=== PATIENT | female | born 1990 | race Caucasian/White ===

== ENCOUNTER 2019-08-31 07:14 | Day surgery (SDC) | payer BC ==
[2019-08-28 17:06] LABS: BASOPHILS # (AUTO) 0.1 X10'3 (0-0.2); BASOPHILS % (AUTO) 0.8 % (0-1); EOSINOPHILS # (AUTO) 0.2 X10'3 (0-0.9); EOSINOPHILS % (AUTO) 2.4 % (0-6); LYMPHOCYTES # (AUTO) 1.7 X10'3 (1.1-4.8); MEAN CORPUSCULAR HEMOGLOBIN 26.1 PG (27.0-31.0); MEAN CORPUSCULAR HGB CONC 32.6 g/dL (33.0-36.5); MEAN CORPUSCULAR VOLUME 79.9 FL (78-98); MEAN PLATELET VOLUME 9.1 FL (7.4-10.4); MONOCYTES # (AUTO) 0.6 X10'3 (0-0.9); MONOCYTES % (AUTO) 8.2 % (2-12); NEUTROPHILS # (AUTO) 4.7 X10'3 (1.8-7.7); NEUTROPHILS % (AUTO) 65.6 % (42-75); PRE OP HEMATOCRIT 35.1 % (35.0-45.0); PRE OP HEMOGLOBIN 11.4 g/dL (12.0-16.0); PRE OP PLATELET COUNT 257 X10'3 (140-440); RED BLOOD COUNT 4.39 X10'6 (4.20-5.60); RED CELL DISTRIBUTION WIDTH 19.5 % (11.5-14.5)
[2019-08-28 17:08] LABS: CLARITY,URINE SLIGHTLY CLOUDY (Clear); COLOR,URINE STRAW (Yellow); GLUCOSE, URINE NEGATIVE (Neg); KETONES,URINE NEGATIVE (Neg); LEUKOCYTE ESTERASE ,URINE SMALL (Neg); NITRITES, URINE NEGATIVE (Neg); OCCULT BLOOD,URINE NEGATIVE (Neg); PROTEIN,URINE NEGATIVE (Neg); UROBILINOGEN,URINE 0.2 E.U/dL (0.2-1.0)
[2019-08-28 17:11] LABS: UA COLLECTION TYPE CLN CATCH MIDSTREAM
[2019-08-28 17:19] LABS: ALBUMIN/GLOBULIN RATIO 1.1 (1.1-1.5); ALKALINE PHOSPHATASE 127 IU/L (46-116); BLOOD UREA NITROGEN 10 MG/DL (7-18); BUN/CREATININE RATIO 11.5 (6.6-38.0); CALCIUM 8.6 MG/DL (8.5-10.1); CHLORIDE 105 MMOL/L (99-107); CREATININE 0.87 MG/DL (0.40-0.90); PRE OP ALT 22 U/L (30-65); PRE OP ANION GAP 5 (8-16); PRE OP AST 12 U/L (10-37); PRE OP BILIRUB, TOTAL 0.2 MG/DL (0.0-1.0); PRE OP GLUCOSE 83 MG/DL (70-104); PRE OP POTASSIUM 3.7 MMOL/L (3.4-5.1); PRE OP SODIUM 140 MMOL/L (135-145); TOTAL PROTEIN 7.8 G/DL (6.4-8.2); eGFR 77 ML/MIN
[2019-08-28 17:29] LABS: HCG SERUM QL NEGATIVE
[2019-08-28 17:30] LABS: SQUAMOUS EPITHELIAL CELL,UR MANY /LPF (FEW)
[2019-08-28 17:32] LABS: MUCUS STRANDS FEW /LPF (Neg)
[2019-08-28 17:33] LABS: RBC,URINE 0-2 /HPF (0-2); WBC,URINE 0-4 /HPF (0-4)
[2019-08-28 17:34] LABS: BACTERIA,URINE 1+ /HPF (Neg)
[~2019-08-31] VITALS: Ht 165.1 cm; Wt 72.1 kg
[2019-08-31] VITALS (7 sets, daily range): BP systolic 122–145; BP diastolic 73–93
[~2019-08-31 07:14] MED LIST: P-EP-21 PO; PNV1TABL75 PO; ceFOXitin 2 GM ADDVANTGE BAG 50 ML IV ONE; famotidine 10mg tablet PO ONE; ringers solution, lacted 1,000 ML IV SCH
[2019-08-31] MEDS ORDERED: ringers solution, lacted 1,000 ML IV SCH (08:34)
[2019-08-31] MEDS ORDERED: meperidine/PF 25mg/ml syringe IV PRN ×3 (08:35)
[2019-08-31] MEDS ORDERED: morphine 4 MG/ML inj SYRINge IV PRN ×2 (08:35)
[2019-08-31] MEDS ORDERED: ondansetron/PF 4mg/2ml inj IV PRN (08:35)
[2019-08-31] MEDS ORDERED: proCHLORperazine 10 MG/2 ml inj IV PRN (08:35)
[2019-08-31] MEDS ORDERED: BUPIVAcaine/PF 2.5mg/ml (0.25%) 10ml vial ONE ×2 (09:14→09:33)
[2019-08-31] MEDS ORDERED: fentaNYL/PF 50MCG/1 ML 2ML syringe ONE (09:35)
[2019-08-31] MEDS ORDERED: midazolam 2 mg/2 ml injection ONE (09:35)
[2019-08-31] MEDS ORDERED: sevoflurane 250ml liquid IH ONE (09:37)
[2019-08-31] MEDS ORDERED: BUPIVAcaine/PF 2.5 mg/ml (0.25%) 30ml vial ONE (09:39)
[2019-08-31] MEDS ORDERED: propofol inj 20 ML IV ONE (09:58)
[2019-08-31] MEDS ORDERED: rocuronium 10mg/ml inj IV ONE (09:59)
[2019-08-31] MEDS ORDERED: neostigmine methylsulfate 1 MG/ML 10ml vial ONE (09:59)
[2019-08-31] MEDS ORDERED: dexamethasone sod phosphate 4mg/ml inj. ONE (09:59)
[2019-08-31] MEDS ORDERED: glycopyrrolate 0.2mg/ml inj ONE (09:59)
[2019-08-31] MEDS ORDERED: LIDOcaine 2% (20mg/ml) 5ml vial ONE (09:59)
[2019-08-31] MEDS ORDERED: ondansetron/PF 4mg/2ml inj ONE (09:59)
--- NOTE | 2019-08-31 10:32 | NUR ---
Received from OR via , accompanied by Anesthesiologist DR FELIZ and report given by Anesthesiolgist. AWAKENS TO VOICE. VITALS STABLE. DRESSING DI. SAMI PAIN.
[2019-08-31] MEDS ORDERED: metoprolol tartrate 1mg/ml inj IV ONE (10:33)
--- NOTE | 2019-08-31 11:32 | NUR ---
AWAKE AND ORIENTED. VITALS STABLE. DRESSING DI. STATES PAIN IMPROVING. HOME WITH HER SPOUSE AT THIS TIME.
== END 2019-08-31 11:32 | disposition home or self-care (01) ==
LOC: PAS 07:14
PROVIDERS: ATTEND Obstetrics & Gynecology Obstetrics
DX: Z30.2 Encounter for sterilization (principal); Z79.899 Other long term (current) drug therapy
CPT/HCPCS: 36415; 58670; 80053; 81001; 82948; 84703; 85025; 86885; 86900; 86901; J0694; J1100; J2001; J2175; J2250; J2405; J2704; J2710; J3010; J3490; J7120; A4618; A7000

== ENCOUNTER 2020-08-01 11:08 | Day surgery (SDC) | payer BC ==
[2020-07-25 15:46] LABS: CLARITY,URINE CLEAR (Clear); COLOR,URINE STRAW (Yellow); GLUCOSE, URINE NEGATIVE (Neg); KETONES,URINE NEGATIVE (Neg); LEUKOCYTE ESTERASE ,URINE NEGATIVE (Neg); NITRITES, URINE NEGATIVE (Neg); OCCULT BLOOD,URINE NEGATIVE (Neg); PROTEIN,URINE NEGATIVE (Neg); UROBILINOGEN,URINE 0.2 E.U/dL (0.2-1.0)
[2020-07-25 15:50] LABS: UA COLLECTION TYPE CLN CATCH MIDSTREAM
[2020-07-25 15:53] LABS: BASOPHILS # (AUTO) 0.1 X10'3 (0-0.2); BASOPHILS % (AUTO) 0.7 % (0-1); EOSINOPHILS # (AUTO) 0.1 X10'3 (0-0.9); EOSINOPHILS % (AUTO) 1.8 % (0-6); LYMPHOCYTES # (AUTO) 1.9 X10'3 (1.1-4.8); LYMPHOCYTES % (AUTO) 26.1 % (21-51); MEAN CORPUSCULAR HEMOGLOBIN 20.1 PG (27.0-31.0); MEAN CORPUSCULAR HGB CONC 30.1 g/dL (33.0-36.5); MEAN CORPUSCULAR VOLUME 66.6 FL (78-98); MONOCYTES # (AUTO) 0.6 X10'3 (0-0.9); MONOCYTES % (AUTO) 8.7 % (2-12); NEUTROPHILS # (AUTO) 4.6 X10'3 (1.8-7.7); NEUTROPHILS % (AUTO) 62.7 % (42-75); PRE OP HEMATOCRIT 28.6 % (35.0-45.0); PRE OP PLATELET COUNT 335 X10'3 (140-440); RED BLOOD COUNT 4.29 X10'6 (4.20-5.60); RED CELL DISTRIBUTION WIDTH 18.9 % (11.5-14.5)
[2020-07-25 15:56] LABS: PRE OP HEMOGLOBIN 8.6 g/dL (12.0-16.0)
[2020-07-25 16:02] LABS: ALBUMIN 3.9 G/DL (3.4-5.0); ALBUMIN/GLOBULIN RATIO 0.9 (1.1-1.5); ALKALINE PHOSPHATASE 132 IU/L (46-116); BLOOD UREA NITROGEN 13 MG/DL (7-18); BUN/CREATININE RATIO 17.6 (6.6-38.0); CALCIUM 8.8 MG/DL (8.5-10.1); CHLORIDE 107 MMOL/L (99-107); CREATININE 0.74 MG/DL (0.40-0.90); PRE OP ALT 18 U/L (30-65); PRE OP ANION GAP 6 (8-16); PRE OP AST 12 U/L (10-37); PRE OP BILIRUB, TOTAL 0.2 MG/DL (0.0-1.0); PRE OP GLUCOSE 88 MG/DL (70-104); PRE OP POTASSIUM 4.1 MMOL/L (3.4-5.1); PRE OP SODIUM 141 MMOL/L (135-145); TOTAL CARBON DIOXIDE 28.4 MMOL/L (24-32); TOTAL PROTEIN 8.2 G/DL (6.4-8.2); eGFR > 90 ML/MIN
[2020-07-25 16:34] LABS: PLATELET ESTIMATE NORMAL; POLYCHROMASIA FEW
[2020-07-25 16:35] LABS: ANISOCYTOSIS 2+; ELLIPTOCYTES 1+; HYPOCHROMASIA 1+; MICROCYTOSIS 2+; SCHISTOCYTES FEW; STOMATOCYTES FEW; TARGET CELLS FEW
[2020-07-25 16:49] LABS: HCG SERUM QL NEGATIVE
[2020-08-01] VITALS (8 sets, daily range): BP systolic 130–141; BP diastolic 70–94
[~2020-08-01] VITALS: Ht 165.1 cm; Wt 65.8 kg
[~2020-08-01 11:08] MED LIST changes: -PNV1TABL75 PO; -ceFOXitin 2 GM ADDVANTGE BAG 50 ML IV ONE; +ceFOXitin 2GM-NS 100mL ADDvant 100 ML IV ONE; -famotidine 10mg tablet PO ONE; +famotidine 20mg tablet PO ONE
[2020-08-01] MEDS ORDERED: proCHLORperazine 10 MG/2 ml inj IV PRN (13:15)
[2020-08-01] MEDS ORDERED: morphine 4 MG/ML inj SYRINge IV PRN (13:15)
[2020-08-01] MEDS ORDERED: ondansetron/PF 4mg/2ml inj IV PRN (13:15)
[2020-08-01] MEDS ORDERED: meperidine/PF 25mg/ml syringe IV PRN ×3 (13:15)
[2020-08-01] MEDS ORDERED: morphine 2 MG/ML inj. syringe IV PRN (13:15)
[2020-08-01] MEDS ORDERED: ringers solution, lacted 1,000 ML IV SCH (13:15)
[2020-08-01] MEDS ORDERED: sevoflurane 250ml liquid IH ONE (13:55)
[2020-08-01] MEDS ORDERED: midazolam 2 mg/2 ml injection ONE (13:56)
[2020-08-01] MEDS ORDERED: fentaNYL/PF 50MCG/1 ML 2ML syringe ONE (13:56)
[2020-08-01] MEDS ORDERED: propofol inj 20 ML IV ONE (13:59)
[2020-08-01] MEDS ORDERED: dexamethasone sod phosphate 4mg/ml inj. ONE (14:09)
[2020-08-01] MEDS ORDERED: ondansetron/PF 4mg/2ml inj ONE (14:22)
--- NOTE | 2020-08-01 14:32 | NUR ---
[facility] by Anesthesiologist CLAIRE and report given by Anesthesiolgist. STEPHANIA PAD CDI. VSS, IV PATENT. NO RESP DISTRESS. SKIN WARM AND DRY.
--- NOTE | 2020-08-01 15:02 | NUR ---
DOING WELL.VSS, IV PATENT.C/O PAIN NOW. MED WITH DEMEROL. STEPHANIA PAD CONTINUES CDI.
--- NOTE | 2020-08-01 15:15 | NUR ---
STATES GOOD RESULTS FROM DEMEROL. PAIN IS TOTALLY TOLERABLE.
--- NOTE | 2020-08-01 15:42 | NUR ---
DC TO HOME WITH MOM DRIVING. VSS, IV OUT CATH INTACT. PERIPAD WITH MINIMAL DRAINAGE. DC INSTRUCTIONS GIVEN. STATES UNDERSTANDS. PAIN MINIMAL. TO HOME.
== END 2020-08-01 15:42 | disposition home or self-care (01) ==
LOC: PAS 11:08
PROVIDERS: ATTEND Obstetrics & Gynecology Obstetrics
DX: N92.0 Excessive and frequent menstruation with regular cycle (principal); F41.9 Anxiety disorder, unspecified; F41.0 Panic disorder [episodic paroxysmal anxiety]; D64.9 Anemia, unspecified; Z20.828 Contact with and (suspected) exposure to other viral communicable diseases; Z79.899 Other long term (current) drug therapy; Z98.890 Other specified postprocedural states; Z98.1 Arthrodesis status; Z82.5 Family history of asthma and other chronic lower respiratory diseases; Z83.2 Family history of diseases of the blood and blood-forming organs and certain disorders involving the immune mechanism; Z83.3 Family history of diabetes mellitus; Z80.49 Family history of malignant neoplasm of other genital organs
CPT/HCPCS: 36415; 58563; 80053; 81003; 82948; 84703; 85025; 86885; 86900; 86901; 87635; J0694; J1100; J2175; J2250; J2405; J2704; J3010; J7120; 85008; 86920; A4264; A4355; A4618; A6258; A7000

== ENCOUNTER 2023-10-20 10:59 | Emergency (ER) | payer BC ==
[~2023-10-20] VITALS: Ht 165.1 cm; Wt 79.5 kg
[~2023-10-20 10:59] MED LIST changes: -ceFOXitin 2GM-NS 100mL ADDvant 100 ML IV ONE; -famotidine 20mg tablet PO ONE; -ringers solution, lacted 1,000 ML IV SCH
[2023-10-20 11:06] VITALS: BP 163/114; PULSE 87; RESP 16; TEMP 98.9; O2SAT 98
[2023-10-20] MEDS ORDERED: HYDR-3686 PO (12:11)
[2023-10-20] MEDS: diazepam inj 5 MG/ML inj. IM ONE (12:13)
== END 2023-10-20 12:22 | disposition home or self-care (01) ==
LOC: ER 10:59
DX: F41.9 Anxiety disorder, unspecified (principal); R06.02 Shortness of breath; Z79.899 Other long term (current) drug therapy
CPT/HCPCS: 96372; 99283; J3360